=== PATIENT | female | born 2000 | race Caucasian/White ===

== ENCOUNTER → 2021-11-04 | Outpatient (CLI) | payer OTHER ==
--- NOTE | 2021-11-04 17:13 | Diagnostic Imaging Report ---
PROCEDURE: US Non-ob pelvis comp/trans. TECHNIQUE: Multiple realtime grayscale images were obtained of the pelvis in various projections endovaginally. Transabdominal imaging was also performed. INDICATION: Left lower quadrant pain. COMPARISON: None available FINDINGS: The uterus measures 6.8 x 3.4 x 4.8 cm. The myometrium is normal in echogenicity without discrete mass. The endometrium measures up to 0.5 cm where visualized. An echogenic IUD is appropriately positioned within the endometrial canal. The right ovary measures 3.0 x 2.0 x 2.6 cm. The left ovary measures 2.3 x 1.1 x 1.6 cm. Both ovaries are physiologic in appearance with a dominant follicle in the right ovary measuring up to 1.7 cm. Blood flow is seen in both ovaries on color doppler imaging. No suspicious adnexal mass or fluid collection. No free pelvic fluid. IMPRESSION: 1. Well-positioned IUD. 2. No ovarian torsion or concerning mass. Dictated by: Dictated on workstation # [id number]
== END ==
LOC: RAD 14:30
PROVIDERS: ATTEND Nurse Practitioner
DX: R10.32 Left lower quadrant pain (principal); Z97.5 Presence of (intrauterine) contraceptive device
CPT/HCPCS: 76830; 76856